=== PATIENT | female | born 1960 | race Caucasian/White ===

== ENCOUNTER 2016-08-30 13:53 | Emergency (ER) | payer OTHER ==
[2016-08-30 15:13] LABS: % IMMATURE GRANULYOCYTES 0.4 % (0.0-1.1); ABSOLUTE IMMATURE GRANULOCYTES 0.03 10^3/uL (0.00-0.10); ADD DIFF? NO; ADD MORPH? NO; ADD SCAN? NO; ATYPICAL LYMPHOCYTE FLAG 10 (0-99); FRAGMENT RBC FLAG 0 (0-99); HEMATOCRIT 42.7 % (38.0-47.0); HEMOGLOBIN 14.5 g/dL (12.6-16.3); LEFT SHIFT FLG 0 (0-99); LIPEMIA HEMOLYSIS FLAG 90 (0-99); MEAN CELL HEMOGLOBIN 31.9 pg (27.9-34.1); MEAN CELL VOLUME 94.1 fL (81.5-99.8); MEAN PLATELET VOLUME 9.4 fL (8.7-11.7); PLATELET CLUMPS FLAG 10 (0-99); PLATELET COUNT 306 10^3/uL (150-400); RED BLOOD CELL COUNT 4.54 10^6/uL (4.18-5.33); RED CELL DISTRIBUTION WIDTH 12.3 % (11.5-15.2)
[2016-08-30] MEDS ORDERED: NS 1,000 ML IV ONE (15:19)
[2016-08-30 15:29] LABS: ALANINE AMINOTRANSFERASE 31 IU/L (9-52); ALBUMIN 3.6 g/dL (3.5-5.0); ALKALINE PHOSPHATASE 58 IU/L (38-126); ANION GAP 8 mEq/L (8-16); ASPARTATE AMINOTRANSFERASE 20 IU/L (14-46); BILIRUBIN,TOTAL 0.5 mg/dL (0.1-1.4); CALCIUM 9.3 mg/dL (8.5-10.4); CARBON DIOXIDE 24 mEq/l (22-31); CHLORIDE 109 mEq/L (97-110); CREATININE 0.8 mg/dL (0.6-1.0); GLOMERULAR FILTRATION RATE > 60; GLUCOSE 121 mg/dL (70-100); POTASSIUM 3.9 mEq/L (3.5-5.2); SODIUM 141 mEq/L (134-144); TOTAL PROTEIN 6.4 g/dL (6.3-8.2)
--- NOTE | 2016-08-30 15:30 | UCPHY ---
H & P Patient Type: New Chief Complaint Nursing Narrative: thurs had ?vasular streaking up r forearm/ which resolved in hrs/today hx migraines/awakened at 08 with stewart and mild facial numbness r side which has also resolved Time Seen by Provider: 08/30/16 15:02 HPI/ROS: This patient complains of right facial numbness and right arm paresthesias the symptoms come in the setting of a headache she describes as right frontal and parietal that she has had intermittently for 3 days. She 1st noticed the headache on evening described as mild initially occipital and right frontal that resolved after sleep. Thursday she had no headache and then this morning awakened with right frontal headache moderate intensity achy in nature. She took Advil 400 mg at 10:00 a.m. and reports resolution of her headache. However she has persistent feeling of numbness to her right face. She reports that the right arm numbness is improving. ROS: No recent trauma. Constitutional: She reports fatigue. She had a low- grade fever on of 99.9 but that has resolved. Integumentary: She reports a sharply demarcated serpiginous erythematous rash to the volar aspect of her right forearm on that was not painful or itchy in that resolved within hours. No skin rash elsewhere or since then. HEENT: No intraoral lesions no sore throat. No ear pain. No nasal congestion. Pulmonary: No coughing. She reports mild dyspnea with exertion this morning that seemed out of proportion for her. Cardiovascular: No heart palpitations. No lightheadedness. No leg swelling or calf pain. GI: No belly pain. No nausea or vomiting. : No symptoms. 10 point ROS is otherwise negative. 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 HEENT: Is no external evidence of trauma on exam. Eyes: Pupils are equal and reactive to light. Extraocular motions are intact. Optic fundi: Clear with no papilledema or hemorrhage. Nose atraumatic. Ears: Clear bilaterally with no hemotympanum. Oropharynx: No dental trauma or malocclusion. No intraoral lacerations. Neck: Trachea is midline with no stridor. The patient has no midline neck tenderness and retains a full range of motion without increase in pain. Lungs: Clear to auscultation bilaterally Cardiac: Regular rate and rhythm no murmur gallop or rub. Chest: Nontender. Abdomen: Soft nontender no organomegaly Back: Nontender Extremities: Atraumatic Neuro: GCS of 15. Cranial nerves II through XII intact with the exception of decreased light touch sensation to the right face. 3 out of 3 five-minute memory is intact. Cerebellar exam is normal as judged by symmetric rapid hand movements bilaterally. No pronator drift. No sensory or motor deficits are appreciated. Initial differential diagnosis: potential migraine, TIA, stroke, metabolic abnormality, sinusitis, superficial thrombophlebitis-resolved Constitutional: Initial Vital Signs Temperature (C) 36.6 C 08/30/16 14:07 Heart Rate 78 08/30/16 14:07 Respiratory Rate 16 08/30/16 14:07 Blood Pressure 94/64 L 08/30/16 14:07 O2 Sat (%) 96 08/30/16 14:07 O2 Delivery Mode Room Air Allergies/Adverse Reactions: No Known Allergies Allergy (Verified 08/30/16 14:05) Home Medications: Medication Instructions Recorded Herbals/Supplements -Info Only 1 ea PO DAILY 07/09/16 Levothyroxine [Synthroid 25 mcg 25 mcg PO DAILY06 07/09/16 (*)] [place] Carbonate [[place] 300 mg PO BID 07/09/16 Carbonate Tab 300 mg (*)] QUEtiapine FUMARATE [Seroquel 200 200 mg PO DAILY@2030 07/09/16 mg (*)] Thyroid,Pork [ARMOUR THYROID] 45 mg PO DAILY@1600 07/09/16 Thyroid,Pork [[place] Thyroid] 30 mg PO DAILY@06 07/09/16 clonAZEPAM [CLONAZEPAM] 1 mg PO HS 07/09/16 IMITREX 08/30/16 Medical Decision Making - Diagnostics EKG Interpretation: 12 lead EKG performed shortly after arrival At 4:06 p.m. Sinus rhythm at 55 Overall assessment normal EKG For complete read please refer to [email or web address]. Imaging: CT head, no contrast: Normal per radiologist- ED Course/Re-evaluation: Patient is placed on monitoring remained stable throughout her stay here. Her headache had nearly resolved prior to her arrival after ibuprofen and resolved during her time here without further intervention except for IV fluids. She also reported resolution of her right facial numbness and right arm paresthesias while here. On repeat exam she has no light touch sensory deficits of her face. Discussion: Patient here with headache that did not feel like her typical migraine but was associated with neuro symptoms. I suspect that she had an atypical migraine. We proceeded with workup to rule out stroke or other intracranial abnormalities she has a normal CT head. The brief rash that she had in her forearm is of unclear etiology. She showed me a photo of this on her phone and appears consistent with either superficial thrombophlebitis that has resolved or lymphangitic streak but there is absolutely no rash currently and her symptoms last for few hours on the day that she had the rash. She has a normal ESR and not think she has an autoimmune vasculitis or other autoimmune process. Clinically she does not have a stroke given resolution of her symptoms. No other concerning findings on workup. Her EKG is normal. Differential diagnosis does include potential TIA and I counseled regarding this in the need to have further workup but given her low risk and resolution of symptoms she is safe for discharge home at this time. - Data Points Laboratory Results: Laboratory Results 08/30/16 15:05 08/30/16 15:05 08/30/16 15:05 WBC 6.83 10^3/uL (3.80-9.50) RBC 4.54 10^6/uL (4.18-5.33) Hgb 14.5 g/dL (12.6-16.3) Hct 42.7 % (38.0-47.0) MCV 94.1 fL (81.5-99.8) MCH 31.9 pg (27.9-34.1) MCHC 34.0 g/dL (32.4-36.7) RDW 12.3 % (11.5-15.2) Plt Count 306 10^3/uL (150-400) MPV 9.4 fL (8.7-11.7) Neut % (Auto) 66.0 % (39.3-74.2) Lymph % (Auto) 22.8 % (15.0-45.0) [place] % (Auto) 6.4 % (4.5-13.0) Eos % (Auto) 3.5 % (0.6-7.6) Baso % (Auto) 0.9 % (0.3-1.7) Nucleat RBC Rel Count 0.0 % (0.0-0.2) Absolute Neuts (auto) 4.50 10^3/uL (1.70-6.50) Absolute Lymphs (auto) 1.56 10^3/uL (1.00-3.00) Absolute Monos (auto) 0.44 10^3/uL (0.30-0.80) Absolute Eos (auto) 0.24 10^3/uL (0.03-0.40) Absolute Basos (auto) 0.06 10^3/uL (0.02-0.10) Absolute Nucleated RBC 0.00 10^3/uL (0-0.01) Immature Gran % 0.4 % (0.0-1.1) Immature Gran # 0.03 10^3/uL (0.00-0.10) ESR 5 MM/HR (0-30) Sodium 141 mEq/L (134-144) Potassium 3.9 mEq/L (3.5-5.2) Chloride 109 mEq/L (97-110) Carbon Dioxide 24 mEq/l (22-31) Anion Gap 8 mEq/L (8-16) BUN 16 mg/dL (7-23) Creatinine 0.8 mg/dL (0.6-1.0) Estimated GFR > 60 Glucose 121 H mg/dL (70-100) Calcium 9.3 mg/dL (8.5-10.4) Total Bilirubin 0.5 mg/dL (0.1-1.4) AST 20 IU/L (14-46) ALT 31 IU/L (9-52) Alkaline Phosphatase 58 IU/L (38-126) Total Protein 6.4 g/dL (6.3-8.2) Albumin 3.6 g/dL (3.5-5.0) TSH 0.600 uIU/mL (0.465-4.680) Medications Given: Discontinued Medications Sodium Chloride (Ns) 1,000 mls @ 0 mls/hr IV ONCE ONE PRN Reason: Wide Open Stop: 08/30/16 15:20 Last Admin: 08/30/16 15:20 Dose: 1,000 mls Departure - Departure Disposition: Home, Routine, Self-Care Clinical Impression: Atypical migraine, Rash Condition: Good Instructions: Migraine Headache (ED) Additional Instructions: Diagnoses: 1. Atypical migraine 2. Rash-resolved The differential diagnosis free does include potential TIA. Because of this recommend follow up with Neurology and Cardiology for further evaluation. Plan: Drink plenty fluids Continue current medications Take a baby aspirin each day in addition Quit smoking. Call Dr. Pete-rf microwave engineer for further evaluation Call Dr. Love-neurologist for further evaluation Go the emergency department if he has any significant recurrent symptoms. Referrals: RENO HARRY [Primary Care Provider] - As per Instructions Brian Pete MD [Medical Doctor] - As per Instructions Perry Love MD [Medical Doctor] - As per Instructions - PQRS PQRS Measurement: NA
[2016-08-30 15:37] LABS: SEDIMENTATION RATE 5 MM/HR (0-30)
--- NOTE | 2016-08-30 15:54 | CT ---
CT Head (Without Contrast) 15:37 Indication: Headache. Technique: Standard noncontrast head CT protocol utilizing 5 mm thick collimated slices and field of view of 23 cm. Dose reduction techniques were utilized. Findings: The brain is normally developed. No intracranial hemorrhage, mass lesion, swelling, or ext raaxial fluid collection. The ventricles are normal caliber and midline. The shell and white matter stewart s normal attenuation. No evidence of ischemia. The bones are unremarkable. The paranasal sinuses are clear. Impression: Normal brain. No acute intracranial hemorrhage or evidence of ischemia. Comment: Case was discussed with Dr. Renny Cassidy at 16:52 pm August 30, 2016.
--- NOTE | 2016-08-30 16:08 | CPEKG ---
Heart Rate: 55 RR Interval: 1091 P-R Interval: 152 QRSD Interval: 98 QT Interval: 412 QTC Interval: 394 P Keyes: 50 QRS Keyes: 47 T Wave Keyes: 39 EKG Severity - NORMAL ECG - EKG Impression: SINUS RHYTHM Electronically Signed By: Renny Cassidy 30-Aug-2016 16:23:49
[2016-08-30 16:47] VITALS: BP 95/64; PULSE 70; RESP 17; TEMP 98.4; O2SAT 92
== END 2016-08-30 16:30 | disposition home or self-care (01) ==
LOC: CED 13:53
DX: G43.909 Migraine, unspecified, not intractable, without status migrainosus (principal); Z72.0 Tobacco use
CPT/HCPCS: 70450-PO; 80053-PO; 84443-PO; 85025-PO; 85652-PO; 93010-PO; 96360-PO; 99205-PO; G0463-PO

== ENCOUNTER → 2016-09-11 | Outpatient (CLI) | payer OTHER ==
--- NOTE | 2016-09-11 14:14 | MR ---
MRI of the Brain (Without Contrast) at 1302 hours History: Migraine headache. Paresthesia of skin.. Technique: MRI was performed of the brain using a 1.5 [employer] MRI system. Sagittal and axial images wer e performed with standard imaging sequences. Findings: The ventricles, cisterns, and sulci are normal for the patient's age. No evidence for an e xtra-axial fluid collection. No evidence for mass effect or midline shift. Couple tiny deep hemispher ic and subcortical white matter lesions are seen in supratentorial. No evidence for mass effect or di ffusion restriction.. No evidence for intracranial mass, hemorrhage, or acute infarct. Diffusion-weig hted images are normal. Posterior fossa appears normal with a normal appearance to the craniocervical junction. Pituitary gland is normal in size. The major caliber vessels visualized are normal in appe arance. Paranasal sinuses are clear. Nonspecific fluid is seen in the mastoid air cells. Impression: 1. Few tiny white matter lesions supratentorial which are nonspecific and can be seen with gliosis fr om migraine or trauma or small vessel ischemic change. No evidence for acute infarct. 2. Nonspecific fluid in the mastoid air cells bilateral.
== END ==
LOC: FIMAGING 12:42
PROVIDERS: ATTEND Psychiatry & Neurology Neurology
DX: G43.109 Migraine with aura, not intractable, without status migrainosus (principal); R20.2 Paresthesia of skin

== ENCOUNTER 2016-12-28 21:16 | Emergency (ER) | payer OTHER | END 2016-12-28 21:52 | disposition left against medical advice (07) | LOC: CED 21:16 | DX: Z53.21 Procedure and treatment not carried out due to patient leaving prior to being seen by health care provider (principal) ==